=== PATIENT | female | born 1965 | race American Indian/Alaskan Native ===

== ENCOUNTER 2021-02-16 10:49 | Outpatient (CLI) | payer MEDICAID ==
--- NOTE | 2021-02-16 18:39 | Treadmill Report ---
[facility] Test Date: 2021-02-16 Test Time: 11:43:00 Pat Name: YOCASTA CURTIS Department: Room: Gender: F Junior Programmer: Esther Tom : 1965 Requested By: KALLIE ARTHUR Order Number: [id number] Reading MD: Levi Honeycutt Interpretive Statements Baseline EKG showed sinus rhythm at a rate of 81 bpm. Within normal limits. Patient exercised for 6 minutes on standard Jaspal protocol, attained a heart rate of 183 bpm. This is more than 100% of predicted maximal heart rate. Test was stopped due to fatigue. No chest pain. No EKG changes to suggest ischemia. No arrhythmia noted. Resting blood pressure was 141/70, peak blood pressure was 206/75 mmHg. Final impression: Fair exercise tolerance. Attained adequate heart rate response. Negative for angina. Negative for ischemia on the EKG. No arrhythmia. Systolic hypertension with exercise. Overall this is a low risk stress test. Electronically Signed On 02-16-2021 18:38:34 EDT by Levi Honeycutt
== END 2021-02-16 10:50 | disposition home or self-care (01) ==
LOC: CARD 10:49
PROVIDERS: ATTEND Internal Medicine Cardiovascular Disease
DX: R07.89 Other chest pain (principal)
CPT/HCPCS: 93017